=== PATIENT | male | born 1950 | race Caucasian/White ===

== ENCOUNTER → 2017-12-08 | Outpatient (CLI) | payer BC, MEDICARE ==
--- NOTE | 2017-12-08 17:49 | US ---
EXAM DESCRIPTION: Abdomen,Complete CLINICAL HISTORY: GENERALIZED ABDOMEN TENDERNESS COMPARISON: None Available. TECHNIQUE: Complete abdominal ultrasound FINDINGS: Visualized portions of the pancreas are unremarkable. No peripancreatic fluid. Bowel gas obscures some areas. Normal caliber of the aorta. Normal appearance of the inferior vena cava. Liver parenchyma is densely echogenic consistent with diffuse hepatic steatosis of moderate severity. No liver mass or intrahepatic bile duct dilatation. No liver surface irregularity. Liver length of 17.6 cm is near the upper limits of normal. Normal appearance of hepatic veins and portal vein. Common bile duct is normal in caliber measuring 5.5 mm. The right kidney measures 10.3 cm in length. Normal renal cortical echogenicity. The renal cortical thickness appears normal. No right renal mass, shadowing stone or cyst. There is no hydronephrosis. Spleen is normal in size. No focal splenic lesion. The left kidney measures 11.3 cm in length. Normal renal cortical echogenicity. The renal cortical thickness appears normal. Echogenic focus in the left kidney cortex could be calcification (stone) or small angiomyolipoma. This appears benign. Otherwise no left renal mass cyst. There is no hydronephrosis. IMPRESSION: Diffuse hepatic steatosis. No acute upper abdominal process. Electronically signed by: Ronnie Duncan MD 12/08/2017 5:48 PM CDT
== END | disposition home or self-care (01) ==
LOC: LAB.O 10:20
PROVIDERS: ATTEND Nurse Practitioner Family
DX: R06.00 Dyspnea, unspecified (principal); R10.817 Generalized abdominal tenderness

== ENCOUNTER → 2019-07-22 | Outpatient (CLI) | payer BC, MEDICARE ==
--- NOTE | 2019-07-22 14:36 | MRI ---
EXAM DESCRIPTION: Brain w/wo Contrast: Magnetic Resonance Imaging. CLINICAL HISTORY: 69 years Male DIZZINESS COMPARISON: None. TECHNIQUE: Multiplanar, high-field MRI, multiple conventional sequences, without and with 1 mL per 5 kg gadolinium IV contrast. No adverse reactions. Multiple axial diffusion sequences. FINDINGS: Multiple hyperintense FLAIR and T2-weighted signal confluently lesions in the periventricular white matter abutting the frontal horns of the lateral ventricles and the posterior lateral ventricles and occipital horns relatively symmetric. Also multiple hyperintense bilateral FLAIR and T2-weighted signal foci in the subcortical white matter frontal parietal and occipital lobes and also anterior left temporal lobe. Few lesions in the bilateral centrum semiovale. No findings of hemorrhage, mass effect, abnormal contrast enhancement or diffusion restriction.. Normal signal in the bilateral basal ganglia. No hemorrhage, no cerebral edema, no mass-effect. Normal contrast enhancement. Normal signal in the brainstem and cerebellar hemispheres. No hemorrhage, no cerebral edema, no mass-effect. Normal contrast enhancement. Concordance of the diffusion and non-diffusion sequences with no evidence of acute or subacute infarction. Cortical sulci, ventricles, and other CSF spaces, and the subdural spaces are normally configured for patients age. Minimal symmetric cortical atrophy frontoparietal and occipital lobes.. No effacement or displacement. No midline shift. No extra-axial hemorrhage. Normal contrast enhancement. Normal flow signal void in the major vessels of the [place], and the venous sinuses. IACs are symmetric bilaterally. Normal signal in the bilateral mastoid air cells. No mass effect in the bilateral Cerebellopontine angles. Normal contrast enhancement. Pituitary gland occupies most of the sella. Focal, spherical shaped 3 mm region of non- contrast enhancement. Anterior location. Midline to slightly left of midline. Base of the cerebellar tonsils is above the foramen magnum. Nasal sinuses with minimal mucoperiosteal thickening in the ethmoids.. The bony calvarium is intact. Minimal edema in the bilateral optic nerve sheaths abutting the optic globes. IMPRESSION: 1. Bilateral periventricular white matter lesions relatively symmetric and also involvement of the bilateral subcortical white matter, and a subcortical white matter lesion in the left temporal lobe. Not associated with hemorrhage, cerebral edema, mass effect, abnormal contrast enhancement, or diffusion restriction. Consistent with white matter changes related to aging and/or cerebral microvascular disease. 2. Normal noncontrast MRI diffusion study with no evidence of acute or subacute significant ischemia or infarction. 3. 3 mm well-defined nonenhancing region in the anterior pituitary gland which could represent a pituitary microadenoma. Correlate with clinical findings. Electronically signed by: Jeff Gutiérrez MD 07/22/2019 2:35 PM [facility]
--- NOTE | 2019-07-23 15:02 | MRI ---
EXAM DESCRIPTION: Cervical Spine w/wo Contrast: MRI. CLINICAL HISTORY: 69 years Male CERVICALGIA COMPARISON: MRI scan of the brain without and with gadolinium IV contrast on the same visit. TECHNIQUE: Multiplanar, high-field MRI, multiple sequences, non-contrast Cervical spine. FINDINGS: C2-C3: Tiny posterior midline bulge abutting the extradural space. Posterior elements unremarkable. No canal or neural foraminal stenosis. C3-C4: Disc desiccation and moderate disc space loss. Bilateral spondylosis. Anterior bulging with endplate ridging. Left uncinate spur. Posterior bulging in the midline and left paracentral 4 x 5 protrusion abutting the left ventral cord and impinging left L5 nerve. Left neural foraminal stenosis. Moderate right neural foraminal narrowing. Left paracentral mild canal stenosis. Facets are unremarkable. C4-C5: Disc desiccation and moderate to severe disc space loss and endplate changes. Right uncinate spur. Right posterior disc protrusion with endplate spurs impressing on the right ventral cord with right neural foraminal stenosis and impingement right C5 nerve. Thickened posterior ligaments. Minimal arthrosis right facet. Right paracentral mild to moderate canal stenosis. C5-C6: Disc desiccation and severe disc space loss. Posterior broad-based bulge with endplate ridging. Trace retrolisthesis. Bilateral uncinate spurs. Bilateral posterior ligament thickening with unremarkable facets. Mild central canal stenosis and bilateral neural foraminal stenosis. Possible compromise bilateral C6 nerve roots. C6-C7: Disc desiccation moderate disc space loss. Posterior endplate ridging and broad-based disc bulge spurs. Minimal posterior ligament thickening. Hypertrophic arthrosis right facet. Moderate canal narrowing. Right neural foraminal stenosis and moderate to severe left foraminal narrowing. C7-T1: Disc desiccation and moderate disc space loss with posterior spondylosis. Posterior broad-based disc bulge. Canal narrowing. Bilateral uncinate spurs with mild to moderate bilateral neural foraminal narrowing. Normal signal in the T1-T2 with no bulging. Disc space preserved. Canal and neural foramina are patent. Facet joints unremarkable. Spinal alignment reduced lordosis C1-C6. No cord compression or cord edema. Atlantoaxial joint minimal arthrosis and hypertrophy.. Base of the cerebellar tonsils is slightly above the foramen magnum. Paravertebral soft tissues 1 cm hyperintense T2 nodule right thyroid lobe.. Vertebral bodies are not compressed at any level. Otherwise normal marrow signal in the remaining vertebral bodies and the posterior elements. IMPRESSION: 1. Multiple levels of disc bulging with endplate ridging and spurs and spondylosis, hypertrophic facet arthrosis and posterior flavum ligament thickening. 2. Uncinate spur on the left at C3-C4 with bulging or protruding disc resulting in neural foraminal stenosis and possible compromise left C4 nerve root. 3. Uncinate spur on the right at C4-C5 with right posterior disc protrusion and spur resulting in right paracentral canal stenosis and right neural foraminal stenosis. Possible compromise right C5 nerve. Also thickened posterior ligaments. 4. Posterior broad-based disc bulge with endplate ridging impressing on the cord. Bilateral uncinate spurs. Mild central canal stenosis and bilateral neural foraminal stenosis and possible bilateral C6 nerve compromise. Also thickened posterior ligaments. 5. C6-C7 posterior endplate spurs and posterior disc bulge and right neural foraminal stenosis and possible compromise right C7 nerve. Mild to moderate canal narrowing. Posterior spondylosis and disc desiccation and bulging at C7-T1. Electronically signed by: Jeff Gutiérrez MD 07/23/2019 3:01 PM [facility]
== END ==
LOC: LAB.O 10:58
PROVIDERS: ATTEND Nurse Practitioner Family
DX: M50.90 Cervical disc disorder, unspecified, unspecified cervical region (principal); M50.220 Other cervical disc displacement, mid-cervical region, unspecified level; M50.221 Other cervical disc displacement at C4-C5 level; M46.02 Spinal enthesopathy, cervical region; M47.892 Other spondylosis, cervical region

== ENCOUNTER → 2019-10-07 | Outpatient (CLI) | payer BC, MEDICARE ==
--- NOTE | 2019-10-08 14:58 | MRI ---
EXAM DESCRIPTION: Lumbar Spine w/o Contrast : Magnetic Resonance Imaging. CLINICAL HISTORY: Other intervertebral disc displacement COMPARISON: None. TECHNIQUE: Multiplanar, multiple standard sequences, non contrast MRI, lumbar spine. FINDINGS: L5-S1: The disc is well visualized on axial T2 series 501, image 3. Disc desiccated and moderate disc space loss. Moderate endplate reactive changes bilaterally more on the left and midline. Disc osteophyte complex encroaching on the left foramen and soft tissues with borderline left foraminal stenosis. Degenerative hypertrophy of the posterior flavum ligaments and facet joints (posterior elements. Mild canal narrowing. Moderate to severe narrowing right foramen. L4-L5: Disc desiccation and minimal disc space loss. Patchy moderate endplate reactive changes. Trace retrolisthesis. Posterior broad-based disc osteophyte bulge into the canal more left than right. Bilateral flavum ligament hypertrophy. AP canal diameter 5.5. 10 x 9 mm synovial cyst between the left facet joint in the left lateral thecal sac. Disc migrates into the left subarticular recess which is stenotic with compromise of the left L5 nerve. Mild right foraminal narrowing and mild to moderate left foraminal narrowing. L3-L4: Normal signal in the disc with no disc space loss. Mild hypertrophic degeneration of the posterior elements. AP canal diameter 13 mm. Bilateral foramina are patent. L2-L3: Disc desiccation and minimal disc space loss. Patchy moderate endplate reactive changes anterior and posterior with anterior bulge. Posterior broad-based bulge with right paracentral hyperintense T2 annular fissure, posterior margin to the right of midline. Degenerative hypertrophy of the posterior elements. AP canal diameter 10 mm. Mild narrowing of the right foramen with left foramen is patent. L1-L2: Disc desiccation and minimal disc space loss. Anterior bulging with endplate ridging. Anterior and posterior disc margin moderate endplate reactive changes. Trace retrolisthesis and tiny posterior bulge. Mild degenerative hypertrophy of the posterior elements. AP canal diameter 11 mm. Bilateral mild to moderate foraminal narrowing. T12-L1: Disc degeneration and disc space loss and mild. Anterior bulging and endplate ridging. Anterior moderate endplate reactive changes. Trace retrolisthesis with 4 mm bulge to the right of midline. Mild right paracentral canal narrowing. Mild narrowing of the bilateral foramina. T11-T12 disc desiccation and posterior bulge abutting the cord. Conus terminates at L1. No significant scoliosis. Paravertebral soft tissues show AP canal diameter of the aorta 2.7 cm at the origin of the SMA.. Distal cord normal signal and caliber. Otherwise normal marrow signal in the remaining vertebral bodies and the posterior elements. Vertebral bodies are not compressed at any level. IMPRESSION: 1. Multiple levels of endplate spondylosis, disc degeneration and bulging, degeneration/hypertrophy of the posterior flavum ligaments and facet joints and canal narrowing. 2. Multifactorial severe canal stenosis at L4-L5 more severe on the left with left facet synovial cyst. Also disc bulge into the left subarticular recess which is stenotic with encroachment left L5 nerve. Mild to moderate left foraminal narrowing. 3. Diffuse spondylosis disc desiccation and disc space loss at L5-S1 with moderate canal narrowing, hypertrophic posterior elements and borderline stenosis of the left neural foramen. 4. Multifactorial borderline mild central canal stenosis at L2-L3. Annular fissure in the right posterior bulging disc margin. Diffuse spondylosis anteriorly. 5. 2.7 cm abdominal aortic aneurysm suspected, (at the origin of the SMA). Recommend follow-up every 5 years. Reference: J Am Loyd Radiol 2013;10:789-794. Electronically signed by: Jeff Gutiérrez MD 10/08/2019 2:57 PM CARDIAC NURSE
== END ==
LOC: MRI 10:00
PROVIDERS: ATTEND Nurse Practitioner Family
DX: M51.27 Other intervertebral disc displacement, lumbosacral region (principal); M47.896 Other spondylosis, lumbar region; M47.897 Other spondylosis, lumbosacral region; M48.061 Spinal stenosis, lumbar region without neurogenic claudication; M51.36 Other intervertebral disc degeneration, lumbar region; M51.37 Other intervertebral disc degeneration, lumbosacral region; M51.86 Other intervertebral disc disorders, lumbar region; M24.28 Disorder of ligament, vertebrae; M71.38 Other bursal cyst, other site; I71.4 Abdominal aortic aneurysm, without rupture

== ENCOUNTER → 2020-04-23 | Outpatient (CLI) | payer MEDICARE, OTHER ==
--- NOTE | 2020-04-24 11:06 | RAD ---
EXAM DESCRIPTION: Chest,2 Views CLINICAL HISTORY: ESSENTIAL HYPERTENSION COMPARISON: CTA chest June 04, 2016 TECHNIQUE: PA/lateral FINDINGS: There is no acute appearing cardiac or pulmonary abnormality. Heart size is normal with normal pulmonary vascularity. No pleural effusion or pneumothorax. Lungs are clear with no consolidating infiltrate. Lateral view shows intact sternum and T-spine. IMPRESSION: No acute process is identified in the chest. Electronically signed by: Ronnie Duncan MD 04/24/2020 11:03 AM CDT
== END ==
LOC: RAD 14:26
PROVIDERS: ATTEND Nurse Practitioner Family
DX: I10 Essential (primary) hypertension (principal)

== ENCOUNTER → 2020-05-02 | Outpatient (CLI) | payer MEDICARE, OTHER | END | disposition home or self-care (01) | LOC: LAB.O 14:23 | PROVIDERS: ATTEND Nurse Practitioner Family | DX: M51.27 Other intervertebral disc displacement, lumbosacral region (principal) ==